=== PATIENT | female | born 1945 | race Caucasian/White ===

== ENCOUNTER 2017-07-06 09:32 | Outpatient (CLI) | payer MEDICARE, BC ==
[~2017-07-06 09:32] MED LIST: Iopamidol 370 76% 100 ML VIAL ONE
[2017-07-06 10:51] LABS: Bilirubin Negative (Negative); Blood, Urine Small (Negative); Clarity Clear (Clear); Glucose, Urine (Dipstick) Negative (Negative); Leukocyte Trace (Negative); Nitrite Negative (Negative); Protein, Urine (Dipstick) Negative (Neg-Trace); Urobilinogen 0.2 mg/dL (0.2-1.0)
[2017-07-06 10:53] LABS: Specific Gravity, Urine 1.022 (1.002-1.036)
--- NOTE | 2017-07-06 11:50 | CT ---
CT ABDOMEN AND PELVIS WITH AND WITHOUT IV CONTRAST: Date: 07/06/17 HISTORY: Gross hematuria. FINDINGS: Comparison is made with exam dated 07/23/15. The lung bases are clear. The patient is status post cholecystectomy, hysterectomy, and appendectomy. The liver, spleen, pancreas, and adrenal glands are normal. No free air, free fluid, or lymphadenopa thy seen in the abdomen or pelvis. No calculi seen in the kidneys, ureters, or the urinary bladder. No hydroureteronephrosis is seen on either side. There is normal contrast excretion in the pelvicaliceal systems and ureters on either si de. No solid renal masses are identified. The small bowel loops are not abnormally dilated. There are vascular calcifications without evidence of aneurysmal dilatation of the abdominal aorta. Degenerati ve changes are present in the spine. IMPRESSION: No CT evidence of urinary tract calculi/obstruction or solid renal mass. POS: JENN[facility]ER
[2017-07-06 12:49] LABS: Bacteria/HPF None Seen HPF (None Seen); RBC/HPF 0-3 HPF (0-3); Squamous Epithelial 0-3 HPF (0-3); WBC/HPF None Seen HPF (0-3)
== END 2017-07-06 09:33 | disposition home or self-care (01) ==
LOC: SCSCT 09:32
PROVIDERS: ATTEND Urology
DX: R31.0 Gross hematuria (principal)
CPT/HCPCS: 74178; 81001; 82565; 87077; 87086; 87186; 88112